=== PATIENT | female | born 1955 | race Caucasian/White ===

== ENCOUNTER 2018-04-30 19:00 | Emergency (ER) | payer OTHER ==
[~2018-04-30] VITALS: Ht 167.6 cm; Wt 56.7 kg
[~2018-04-30 19:00] MED LIST: AZITHROMYCIN 2250 MG PO; MEDROL DOSPAK21 TA1 PO
[2018-04-30] MEDS ORDERED: SYMBICORT160 MCG/4. (19:19)
[2018-04-30 19:27] LABS: URINE BILIRUBIN NEGATIVE (Negative); URINE BLOOD NEGATIVE (Negative); URINE CLARITY CLEAR; URINE COLOR YELLOW; URINE GLUCOSE-RANDOM NEGATIVE (Negative); URINE KETONES NEGATIVE (Negative); URINE LEUKOCYTES-REFLEX NEGATIVE (Negative); URINE NITRITE-REFLEX NEGATIVE (Negative); URINE PROTEIN NEGATIVE (Negative); URINE UROBILINOGEN 0.2 E.U./dl (0.2-1.0)
[2018-04-30 19:49] LABS: ABSOLUTE BASOPHILS 0.1 thou/uL (0.0-0.2); ABSOLUTE EOSINOPHILS 0.1 thou/uL (0.0-0.7); ABSOLUTE LYMPHOCYTES 1.6 thou/uL (0.8-5.3); ABSOLUTE MONOCYTES 0.6 thou/uL (0.0-1.2); ABSOLUTE NEUTROPHILS 5.9 thou/uL (1.6-8.1); BASOPHILS 0.8 %; EOSINOPHILS 1.7 %; HEMATOCRIT 44.1 % (37.0-47.0); HEMOGLOBIN 14.7 gm/dL (12.0-15.0); LYMPHOCYTES 19.5 %; MCH 30.6 pg (26.0-34.0); MCHC 33.4 g/dL (28.0-37.0); MCV 91.7 fL (80.0-100.0); MONOCYTES 7.4 %; MPV 8.8 fl. (7.2-11.1); NUCLEATED RBCS 0 /100WBC; PLATELET COUNT* 305 thou/uL (150-400); POLYS 70.6 %; RDW-CV 14.2 % (10.5-14.5); WBC 8.4 thou/uL (4.0-11.0)
[2018-04-30 20:10] LABS: CALCIUM 9.5 mg/dL (8.5-10.1); CREATININE 0.7 mg/dL (0.6-1.3); POTASSIUM 3.5 mmol/L (3.5-5.1)
[2018-04-30 20:15] LABS: ALBUMIN 3.4 g/dL (3.4-5.0); TOTAL BILIRUBIN 0.2 mg/dL (<0.1-1.0); TOTAL PROTEIN 7.2 g/dL (6.4-8.2)
[2018-04-30 20:41] LABS: AMP/METHAMP Negative (Negative); BARBITURATES Negative (Negative); BENZODIAZEPINES Negative (Negative); COCAINE Negative (Negative); METHADONE Negative (Negative); OPIATES Negative (Negative); PCP Negative (Negative); THC POSITIVE (Negative)
[2018-04-30] MEDS ORDERED: FLEXERIL PO (23:03)
[2018-04-30] MEDS ORDERED: PROAIR HFA8.5 GM INH (23:03)
[2018-04-30] MEDS ORDERED: ACETAMINOPHEN-1 EAC1 PO (23:03)
[2018-04-30 23:17] VITALS: BP 115/78
== END 2018-04-30 23:19 | disposition home or self-care (01) ==
LOC: M.ERS 19:00
PROVIDERS: Emergency Medicine
DX: N63.20 Unspecified lump in the left breast, unspecified quadrant (principal); R10.33 Periumbilical pain; J44.9 Chronic obstructive pulmonary disease, unspecified; F17.210 Nicotine dependence, cigarettes, uncomplicated; Z90.710 Acquired absence of both cervix and uterus; Z86.14 Personal history of Methicillin resistant Staphylococcus aureus infection